=== PATIENT | male | born 1980 | race Caucasian/White ===

== ENCOUNTER → 2023-02-13 | Outpatient (CLI) | payer BC ==
--- NOTE | 2023-02-15 12:02 | MR ---
EXAMINATION TYPE: MR abdomen wo/w con DATE OF EXAM: 02/13/2023 7:12 PM CLINICAL INDICATION:Male, 42 years old with history of K74.60 UNSPECIFIED CIRRHOSIS OF LIVER; PHH, Ab normal US COMPARISON: Ultrasound report with the last artery suggestive of cirrhosis. TECHNIQUE: Multiplanar multi-sequence imaging was performed without contrast. Post contrast imaging was performed. Post IV contrast subtraction images were also submitted for review. IV Contrast: 12 cc Gadobutrol FINDINGS: LOWER CHEST: No gross irregularity. ABDOMEN Liver: Mild signal dropout on chemical shift of phase imaging. Overall the contour of the liver is re latively smooth. No suspicious observations. There is caudate lobe hypertrophy changes. There is scat tered high-grade simple appearing cyst. Gallbladder and Bile ducts: Gallbladder is within normal limits for size. There are layering gallston es present. Gallbladder fundal possible polyp present series 601 image 32 measuring 3 mm. Pancreas: No ductal dilation. No evidence for solid mass. Spleen: Normal for size. Adrenal glands: Unremarkable. Kidneys: No evidence for obstructive uropathy. No suspicious renal masses. Stomach and Bowel: No evidence for bowel wall thickening or evidence for obstruction.. Peritoneum: No evidence of pneumoperitoneum or free fluid. Vasculature: No aortic aneurysm. Musculoskeletal: The osseous structures appear intact. Lymph Nodes: No gross evidence for lymphadenopathy. Abdominal wall: Unremarkable. IMPRESSION: 1. Mild hepatic steatosis. No evidence for nodular contour to liver to suggest cirrhosis on MRI imag ing. No suspicious observations to suggest hepatic mass. 2. Cholelithiasis. 3. Possible 3 mm gallbladder fundal polyp. 4. Simple appearing hepatic cysts
== END | disposition home or self-care (01) ==
LOC: RADMRIMAIN 18:14
PROVIDERS: ATTEND Family Medicine
DX: K74.60 Unspecified cirrhosis of liver (principal); K76.0 Fatty (change of) liver, not elsewhere classified; K80.20 Calculus of gallbladder without cholecystitis without obstruction; K76.89 Other specified diseases of liver
CPT/HCPCS: 74183; A9585